=== PATIENT | male | born 1975 | race Caucasian/White ===

== ENCOUNTER 2017-01-18 21:15 | Emergency (ER) | payer OTHER ==
[2017-01-18 21:30] VITALS: BP 130/77; RESP 16; TEMP 98.8; O2SAT 100
--- NOTE | 2017-01-18 22:42 | CT ---
EXAM: CT Head Without Intravenous Contrast CLINICAL HISTORY: 41 years old, male; Pain; Headache; Tension; Additional info: Headaches, memory loss TECHNIQUE: Axial computed tomography images of the head/brain without intravenous contrast. All CT scans at this facility use one or more dose reduction techniques, viz.: automated exposure control; ma/kV adjustment per patient size (including targeted exams where dose is matched to indication; i.e. head); or iterative reconstruction technique. Coronal and sagittal reformatted images were created and reviewed. COMPARISON: No relevant prior studies available. FINDINGS: Brain: No acute intracranial hemorrhage. No significant white matter disease. No edema. Ventricles: No significant ventriculomegaly. Bones: No acute displaced fracture. Sinuses: Unremarkable as visualized. No acute sinusitis. Mastoid air cells: Unremarkable as visualized. No mastoid effusion. IMPRESSION: No acute intracranial hemorrhage, or suspicious mass effect.
[2017-01-18 23:01] LABS: BASO # 0.1 K/uL (0.0-0.2); BASO % 0.9 % (0.0-2.0); EOS # 0.1 K/uL (0.0-0.7); EOS % 0.8 % (0.0-4.0); HEMATOCRIT 44.2 % (35.0-51.0); LYMPH # 3.1 K/uL (1.0-4.3); LYMPH % 25.1 % (20.0-40.0); MEAN CORPUSCULAR HEMOGLOBIN 30.1 pg (27.0-31.0); MEAN CORPUSCULAR HGB CONC 33.8 g/dL (33.0-37.0); MEAN PLATELET VOLUME 8.9 fl (7.2-11.7); MONO # 1.1 K/uL (0.0-0.8); MONO % 9.1 % (0.0-10.0); NEUT # 7.8 K/uL (1.8-7.0); NEUT % 64.1 % (50.0-75.0); RED CELL DISTRIBUTION WIDTH 14.4 % (11.5-14.5); WHITE BLOOD COUNT 12.2 K/uL (4.8-10.8)
--- NOTE | 2017-01-18 23:05 | ED PDOC ---
HPI: Headache Time Seen by Provider: 01/18/17 21:51 Chief Complaint (Nursing): Headache Chief Complaint (Provider): Headache, occasional memory loss History Per: Patient History/Exam Limitations: no limitations Onset/Duration Of Symptoms: Intermittent Episodes, Persistent (1 month) Current Symptoms Are (Timing): Still Present Quality: "Pain" Preceeding Symptoms: None Additional History Per: Family Additional Complaint(s): 41yo male, with past medical history of diabetes, hypertension, hypercholesterolemia, morbid obesity, presents to the ED for evaluation of headache, present intermittently for the past month. Patient states the pain is present everyday but presents today due to concerns of occasional memory loss; patient states his has noticed him becoming increasingly forgetful. He states the headache is mild and also reports this is not the worst headache of his life, and there is no thunderclap headache. Patient also has an additional complaint of atraumatic hand pain which he states is not currently present. Patient offers no other medical complaints. PCP: Dr. Harry Past Medical History Reviewed: Historical Data, Nursing Documentation, Vital Signs Vital Signs: Last Vital Signs Temp 98.8 F 01/18/17 21:26 Pulse 111 H 01/18/17 21:26 Resp 16 01/18/17 21:26 BP 130/77 01/18/17 21:26 Pulse Ox 100 01/18/17 21:26 - Medical History PMH: Diabetes, HTN, Hypercholesterolemia Other PMH: morbid obesity - Surgical History Surgical History: No Surg Hx - Family History Family History: States: No Known Family Hx - Living Arrangements Living Arrangements: With Family - Social History Current smoker - smoking cessation education provided: No Ex-Smoker (has not smoked in the last 12 months): No Alcohol: None Drugs: Denies - Home Medications Home Medications: Ambulatory Orders Medication Instructions Recorded MetFORMIN [glucoPHAGE] 1,000 mg PO HS #14 tab 05/04/16 Naproxen [Naprosyn] 500 mg PO Q8 #30 tablet 01/18/17 - Allergies Allergies/Adverse Reactions: Allergies Allergy/AdvReac Type Severity Reaction Status Date / Time No Known Allergies Allergy Verified 01/18/17 21:25 Review of Systems ROS Statement: Except As Marked, All Systems Reviewed And Found Negative Musculoskeletal: Positive for: Hand Pain (atraumatic) Neurological: Positive for: Headache. Negative for: Other (thunderclap headache ; worst headache of life) Physical Exam - Reviewed Nursing Documentation Reviewed: Yes Vital Signs Reviewed: Yes - Physical Exam Appears: Positive for: Non-toxic, No Acute Distress Head Exam: Positive for: ATRAUMATIC, NORMAL INSPECTION, NORMOCEPHALIC Cardiovascular/Chest: Positive for: Regular Rate, Rhythm Respiratory: Positive for: Normal Breath Sounds. Negative for: Respiratory Distress Neurologic/Psych: Positive for: Alert, ornamental ironworker II-XII (intact), Oriented, Mood/ Affect (normal), Cerebellar Tests (normal), Gait (steady). Negative for: Motor/ Sensory Deficits, Aphasia, Facial Droop - Laboratory Results Result Diagrams: 01/18/17 22:35 01/18/17 22:35 - ECG O2 Sat by Pulse Oximetry: 100 (RA) Pulse Ox Interpretation: Normal Medical Decision Making Medical Decision Making: Time: 2205 Impression: Nonpathological headache and memory loss Plan: -- Labs -- Urinalysis -- CT Head Reassess Time: 2241 CT Head FINDINGS: Brain: No acute intracranial hemorrhage. No significant white matter disease. No edema. Ventricles: No significant ventriculomegaly. Bones: No acute displaced fracture. Sinuses: Unremarkable as visualized. No acute sinusitis. Mastoid air cells: Unremarkable as visualized. No mastoid effusion. IMPRESSION: No acute intracranial hemorrhage, or suspicious mass effect. 2345: Pt. feeling well, results explained. Given wrist splints as pt. c/o of pain in his wrists when typing. Told to f/u w/ Dr. Mendieta, neurology. Return precautions discussed. Will d/c home. Scribe Attestation: Documented by Helena Marie acting as a scribe for Cuco Boykin MD. Provider Attestation: All medical record entries made by the Scribe were at my direction and personally dictated by me. I have reviewed the chart and agree that the record accurately reflects my personal performance of the history, physical exam, medical decision making, and the department course for this patient. I have also personally directed, reviewed, and agree with the discharge instructions and disposition. Disposition - Clinical Impression Clinical Impression: Headache - Disposition Referrals: Lucretia Mendieta MD [Staff Provider] - Disposition: Routine/Home Disposition Time: 23:45 Condition: STABLE Prescriptions: Naproxen [Naprosyn] 500 mg PO Q8 #30 tablet Instructions: Acute Headache (ED) Forms: [facility] ([place])
[2017-01-18 23:10] LABS: BLOOD UREA NITROGEN 24 mg/dl (9-20); CALCIUM 9.5 mg/dL (8.4-10.2); CARBON DIOXIDE 26 mmol/L (22-30); CHLORIDE 106 mmol/L (98-107); GFR AFRICAN-AMERICAN > 60; GLUCOSE,RANDOM 139 mg/dL (75-110); POTASSIUM 4.2 MMOL/L (3.6-5.0); SODIUM 143 mmol/l (132-148)
[2017-01-19 00:03] VITALS: PULSE 101
== END 2017-01-19 00:08 | disposition home or self-care (01) ==
LOC: H.ER 21:15
DX: R51 Headache (principal); R41.3 Other amnesia